=== PATIENT | female | born 1990 | race Caucasian/White ===

== ENCOUNTER 2019-05-12 19:20 | Emergency (ER) | payer MEDICAID ==
[~2019-05-12] VITALS: Ht 154.9 cm; Wt 76.2 kg
[2019-05-12 19:50] VITALS: BP_SYST 113
--- NOTE | 2019-05-12 20:00 | NUR ---
L and Chuck Tirado here to check heart tones
--- NOTE | 2019-05-12 20:00 | NUR ---
Pt AAO x 4, c/o rt foot pain x 1 week. Pt denied taking pain medication, reported 25 weeks however pt denied abdominal pain nor vaginal bleeding. Rt foot with mild swelling and redness to distal dorsum of right foot. Pt c/o sharp pain 8/10 ps. Pt with normal breathing, no other remarkable symptoms noted. Pt waiting for ER MD to evaluate her
--- NOTE | 2019-05-12 22:16 | NUR ---
ER examining patient in triage
[2019-05-12 22:38] VITALS: BP_SYST 110
--- NOTE | 2019-05-12 22:38 | NUR ---
Patient given written and verbal discharge instructions and verbalizes understanding. ER MD discussed with patient the results and treatment provided. Patient in stable condition. ID arm band removed. Rx Keflex 250 mg of given. Patient educated on pain management and to follow up with PMD. Pain Scale 8/10. Opportunity for questions provided and answered.
== END 2019-05-12 22:28 | disposition home or self-care (01) ==
LOC: SED 19:20
DX: L03.115 Cellulitis of right lower limb (principal)
CPT/HCPCS: 99283

== ENCOUNTER 2019-07-30 00:47 | Inpatient (IN) | payer MEDICAID ==
[~2019-07-30] VITALS: Ht 154.9 cm; Wt 81.2 kg
[2019-07-30 01:14] VITALS: BP_SYST 118
[2019-07-30] MEDS ORDERED: CEFAZOLIN 2 GM IVPB PREMIX 50 ML IV ONE ×2 (01:15→09:26)
[2019-07-30] MEDS: LR 1,000 ML IV SCH ×2 (01:30→05:54)
[2019-07-30 01:47] LABS: BILIRUBIN,URINE NEGATIVE (NEGATIVE); BLOOD, URINE 3+ (NEGATIVE); CLARITY/URINE CLOUDY (CLEAR); COLOR,URINE YELLOW (YELLOW); GLUCOSE,URINE NEGATIVE (NEGATIVE); KETONES,URINE NEGATIVE (NEGATIVE); LEUKOCYTE ESTERASE ,URINE 3+ (NEGATIVE); NITRITE, URINE NEGATIVE (NEGATIVE); PROTEIN URINE 2+ (NEGATIVE); UROBILINOGEN,URINE 0.2 (0.2-1.0)
[2019-07-30 01:49] LABS: BASOPHILS # (AUTO) 0.1 K/uL (0.0-0.2); BASOPHILS % (AUTO) 1.1 % (0.0-2.0); EOSINOPHILS # (AUTO) 0.4 K/uL (0.0-0.4); EOSINOPHILS % (AUTO) 4.7 % (0.0-4.0); HEMATOCRIT 39.8 % (36-48); HEMOGLOBIN 13.3 g/dL (12.0-16.0); LYMPHOCYTES # (AUTO) 3.1 K/uL (1.0-5.5); LYMPHOCYTES % (AUTO) 33.8 % (20.5-51.5); MEAN CORPUSCULAR HEMOGLOBIN 30 pg (27-31); MEAN CORPUSCULAR HGB CONC 33 % (32-36); MEAN CORPUSCULAR VOLUME 90 fL (79.0-98.0); MONOCYTES # (AUTO) 0.7 K/uL (0.0-1.0); MONOCYTES % (AUTO) 7.5 % (1.7-9.3); NEUTROPHILS # (AUTO) 4.8 K/uL (1.8-7.7); NEUTROPHILS % (AUTO) 52.9 % (40.0-70.0); PLATELET COUNT (AUTO) 208 K/uL (130-430); RED BLOOD CELL COUNT(AUTO) 4.43 MIL/uL (4.2-6.2); RED CELL DISTRIBUTION WIDTH 13.7 % (9.0-15.0); WHITE BLOOD COUNT (AUTO) 9.2 K/uL (4.8-10.8)
[2019-07-30 01:50] LABS: BACTERIA,URINE MANY /HPF (None Seen); RBC,URINE 50-80 /HPF (0-3); WBC,URINE >100 /HPF (0-3)
[2019-07-30] MEDS ORDERED: fentaNYL CITRATE/PF 100 MCG/2 ML AMP IVP PRN ×2 (08:30)
[2019-07-30] MEDS ORDERED: ONDANSETRON HCL 4 MG/2 ML VIAL IVP PRN (08:30)
[2019-07-30] MEDS ORDERED: NALOXONE HCL 0.4 MG/ML AMP (NARCAN) IVP PRN ×2 (08:30)
[2019-07-30] MEDS ORDERED: NALBUPHINE HCL 10 MG/ML AMP IVP PRN (08:30)
[2019-07-30] MEDS ORDERED: MORPHINE SULFATE 10MG/10ML PF AMP SP SCH (08:30)
[2019-07-30] MEDS ORDERED: KETOROLAC TROMETHAMINE 60 MG/2 ML VIAL IM PRN (08:30)
[2019-07-30] MEDS ORDERED: DIPHENHYDRAMINE INJ 50 MG/ML VIAL IVP PRN (08:30)
[2019-07-30] MEDS ORDERED: NS IRRIG SOLN 1000 ML IR ONE (09:26)
[2019-07-30] MEDS ORDERED: MIDAZOLAM HCL 5 MG/5 ML VIAL IVP ONE (09:26)
[2019-07-30] MEDS ORDERED: BUPIVACAINE /DEX PF 0.75% SPINAL 2 ML AMP INJ ONE (09:26)
[2019-07-30] MEDS ORDERED: LR 1,000 ML IV.SOLN IV ONE (09:26)
[2019-07-30] MEDS ORDERED: ePHEDrine sulfate 50 MG/ML VIAL IVP ONE (09:26)
[2019-07-30] MEDS ORDERED: MORPHINE SULFATE 10MG/10ML PF AMP EP ONE (09:26)
[2019-07-30 10:23] VITALS: BP_SYST 106
[2019-07-30] MEDS ORDERED: DIPH-TET-PERTUS Vaccine 0.5 ML VIAL (ADACEL) I.M. PRN (12:30)
[2019-07-30] MEDS ORDERED: BISACODYL 10 MG/SUPPOSITORY RC PRN (12:30)
[2019-07-30] MEDS ORDERED: LR 1,000 ML IV SCH (12:30)
[2019-07-30] MEDS ORDERED: SENNOSIDES/DOCUSATE SODIUM 1 TAB TABLET(SENOKOT-S) PO PRN (12:30)
[2019-07-30] MEDS ORDERED: MEASLES,MUMPS&RUBELLA VACC/PF 12500 UNIT/0.5 ML VIAL SUBQ PRN (12:30)
[2019-07-30] MEDS ORDERED: RHO(D) IMMUNE GLOBULIN/MALTOSE 1500 UNITS/1.3 ML (WINHRO) IM PRN (12:30)
[2019-07-30] MEDS ORDERED: OXYCODONE/ACETAMINOPHEN 5-325 TABLET PO PRN ×2 (12:30)
[2019-07-30] MEDS ORDERED: DOCUSATE SODIUM 100 MG CAPSULE PO PRN (12:30)
[2019-07-30] MEDS ORDERED: HYDROcodone/ACETAMIN 5-325 MG TAB (NORCO/ VICODIN) PO PRN (12:30)
[2019-07-30] MEDS ORDERED: SIMETHICONE 80 MG TAB.CHEW PO PRN (12:30)
[2019-07-30] MEDS ORDERED: LANOLIN 7 GM OINT. TP PRN (12:30)
[2019-07-30] MEDS ORDERED: ANUSOL 1 EA SUPP.RECT (PREPARATION H) RC PRN (12:30)
[2019-07-30] MEDS ORDERED: OXYTOCIN/0.9 % SODIUM CHLORIDE 1,000 ML IV ONE (12:30)
[2019-07-30] MEDS: KETOROLAC TROMETHAMINE 30 MG VIAL IVP SCH ×2 (18:16→23:54)
[2019-07-30] MEDS: CEFAZOLIN 1 GM IVPB PREMIX 50 ML IV SCH ×2 (18:16→23:54)
[2019-07-30] MEDS ORDERED: TEMAZEPAM 15 MG CAPSULE PO PRN (21:00)
[2019-07-31] MEDS ORDERED: IBUPROFEN 600 MG TABLET PO SCH
[2019-07-31] MEDS: KETOROLAC TROMETHAMINE 30 MG VIAL IVP SCH ×2 (06:02→12:33)
[2019-07-31] MEDS: CEFAZOLIN 1 GM IVPB PREMIX 50 ML IV SCH (06:03)
[2019-07-31 07:22] LABS: BASOPHILS % (AUTO) 0.6 % (0.0-2.0); EOSINOPHILS # (AUTO) 0.1 K/uL (0.0-0.4); EOSINOPHILS % (AUTO) 1.7 % (0.0-4.0); HEMATOCRIT 34.8 % (36-48); HEMOGLOBIN 11.5 g/dL (12.0-16.0); LYMPHOCYTES # (AUTO) 1.5 K/uL (1.0-5.5); LYMPHOCYTES % (AUTO) 19.1 % (20.5-51.5); MEAN CORPUSCULAR HEMOGLOBIN 30 pg (27-31); MEAN CORPUSCULAR HGB CONC 33 % (32-36); MEAN CORPUSCULAR VOLUME 92 fL (79.0-98.0); MONOCYTES # (AUTO) 0.6 K/uL (0.0-1.0); MONOCYTES % (AUTO) 8.2 % (1.7-9.3); NEUTROPHILS # (AUTO) 5.4 K/uL (1.8-7.7); NEUTROPHILS % (AUTO) 70.4 % (40.0-70.0); PLATELET COUNT (AUTO) 172 K/uL (130-430); RED CELL DISTRIBUTION WIDTH 13.4 % (9.0-15.0); WHITE BLOOD COUNT (AUTO) 7.7 K/uL (4.8-10.8)
[2019-07-31] MEDS: IBUPROFEN 600 MG TABLET PO SCH ×2 (18:09→23:55)
[2019-08-01] MEDS: IBUPROFEN 600 MG TABLET PO SCH ×2 (06:00→12:09)
== END 2019-08-01 13:48 | disposition home or self-care (01) | DRG 540 ==
LOC: SPU 00:47
PROVIDERS: ADMIT Obstetrics & Gynecology; ATTEND Obstetrics & Gynecology
PROC: 10D00Z1 Extraction of Products of Conception, Low, Open Approach (ICD-10-PCS; principal; 2019-07-30 10:00)
DX: O32.8XX0 Maternal care for other malpresentation of fetus, not applicable or unspecified (principal); O42.92 Full-term premature rupture of membranes, unspecified as to length of time between rupture and onset of labor; O77.0 Labor and delivery complicated by meconium in amniotic fluid; O69.81X0 Labor and delivery complicated by cord around neck, without compression, not applicable or unspecified; Z37.0 Single live birth; Z3A.38 38 weeks gestation of pregnancy
CPT/HCPCS: 36415; 81000-TC; 85025; 86592; 86886; 86900; 86901; 94760; J0690; J1885; J2250; J2274; J2405; J2590; J3490; J7120

== ENCOUNTER 2019-08-04 15:36 | Inpatient (IN) | payer MEDICAID ==
[~2019-08-04] VITALS: Ht 154.9 cm; Wt 79.4 kg
[2019-08-04 16:30] VITALS: BP_SYST 147
--- NOTE | 2019-08-04 16:40 | NUR ---
Patient triaged and placed in waiting room. VSS and patient appears in no acute distress at this time. Accompanied by friend, awaiting available bed, and MD notified of need for MSE.
[2019-08-04 17:33] LABS: BASOPHILS # (AUTO) 0.1 K/uL (0.0-0.2); BASOPHILS % (AUTO) 0.6 % (0.0-2.0); EOSINOPHILS % (AUTO) 0.5 % (0.0-4.0); HEMATOCRIT 36.1 % (36-48); HEMOGLOBIN 11.7 g/dL (12.0-16.0); LYMPHOCYTES # (AUTO) 0.9 K/uL (1.0-5.5); LYMPHOCYTES % (AUTO) 9.3 % (20.5-51.5); MEAN CORPUSCULAR HEMOGLOBIN 30 pg (27-31); MEAN CORPUSCULAR HGB CONC 33 % (32-36); MEAN CORPUSCULAR VOLUME 92 fL (79.0-98.0); MONOCYTES # (AUTO) 0.4 K/uL (0.0-1.0); MONOCYTES % (AUTO) 4.3 % (1.7-9.3); NEUTROPHILS # (AUTO) 7.9 K/uL (1.8-7.7); NEUTROPHILS % (AUTO) 85.3 % (40.0-70.0); PLATELET COUNT (AUTO) 261 K/uL (130-430); RED BLOOD CELL COUNT(AUTO) 3.93 MIL/uL (4.2-6.2); RED CELL DISTRIBUTION WIDTH 13.7 % (9.0-15.0); WHITE BLOOD COUNT (AUTO) 9.2 K/uL (4.8-10.8)
[2019-08-04 18:07] LABS: CALCIUM 7.9 mg/dL (8.4-11.0); CREATININE 2.24 mg/dL (0.55-1.30); POTASSIUM 4.2 mmol/L (3.5-5.1)
[2019-08-04 18:13] LABS: ALBUMIN 2.4 g/dL (3.4-4.8); TOTAL BILIRUBIN 0.3 mg/dL (0.0-1.0)
[2019-08-04 18:26] LABS: BILIRUBIN,URINE NEGATIVE (NEGATIVE); BLOOD, URINE 2+ (NEGATIVE); CLARITY/URINE CLEAR (CLEAR); COLOR,URINE YELLOW (YELLOW); GLUCOSE,URINE NEGATIVE (NEGATIVE); KETONES,URINE NEGATIVE (NEGATIVE); LEUKOCYTE ESTERASE ,URINE TRACE (NEGATIVE); NITRITE, URINE NEGATIVE (NEGATIVE); PROTEIN URINE NEGATIVE (NEGATIVE); UROBILINOGEN,URINE 0.2 (0.2-1.0)
[2019-08-04 18:35] LABS: BACTERIA,URINE FEW /HPF (None Seen)
--- NOTE | 2019-08-04 20:43 | NUR ---
Pt ambulatory to bed 6 for evaluation
--- NOTE | 2019-08-04 20:55 | NUR ---
Pt presents to ER with friend with c/o nausea, vomiting, body aches, chest tightness and head pain. Pt A&Ox4. Pt states head pain is a migraine and pain is 10/10. Pt states head pain began at 10 am and then around noon, chest tightness began and pain is intermittent. Pt states pain is 7/10. Pt states nausea then started at 1 pm and had 3 episodes of emesis. Pt denies fever, cough, SOB, and chills. Breath sounds bilaterally equal with no use of accessory muscles. Will continue to monitor.
--- NOTE | 2019-08-04 21:03 | NUR ---
ER Dr. Tariq at bedside examining patient.
--- NOTE | 2019-08-04 21:12 | NUR ---
MD Tariq speaking to pt OB doctor, MD Eubanks. Will continue to monitor.
[2019-08-04] MEDS ORDERED: ACETAMINOPHEN 500 MG TABLET PO ONE (21:15)
--- NOTE | 2019-08-04 22:12 | NUR ---
# 20 gauge angiocath placed to R AC. Use of asceptic technique. Opsite placed over site. Blood return noted. Flushed with 10 cc of normal saline. No evidence of infiltration noted. Patient tolerated well.
--- NOTE | 2019-08-04 22:29 | NUR ---
Pt off floor to radiology via wheelchair in stable condition.
--- NOTE | 2019-08-04 22:59 | NUR ---
Pt returned from radiology via wheelchair.
--- NOTE | 2019-08-05 00:01 | NUR ---
Patient will be admitted to care of MD Patel. Admitted to Telemetry unit. Awaiting bed placement. Belongings list completed. Complete and up to date summary report printed. SBAR report to be given at bedside with opportunity for questions.
[2019-08-05] MEDS ORDERED: MORPHINE 2 MG/ML INJ. SYRINGE IVP ONE (00:30)
[2019-08-05] MEDS ORDERED: ONDANSETRON HCL 4 MG/2 ML VIAL IVP ONE (00:45)
[2019-08-05] MEDS ORDERED: MORPHINE 2 MG/ML INJ. SYRINGE ONE (00:45)
[2019-08-05] MEDS ORDERED: ONDANSETRON HCL 4 MG/2 ML VIAL ONE (00:53)
--- NOTE | 2019-08-05 01:00 | NUR ---
Medication reconciliation completed with information provided by patient. Any prior medication reconciliation on file was reviewed and corrected.
--- NOTE | 2019-08-05 01:01 | NUR ---
Transfer to Telemetry room 116B via ACLS protocol. Licensed nurse present. IV present no signs or symptoms of infiltration.
[2019-08-05 01:14] VITALS: BP_SYST 159
--- NOTE | 2019-08-05 01:15 | NUR ---
ADMISSION NOTE Received patient from ER via [facility] under the care of Dr. Patel. Patient admitted with diagnosis of Bradycardia, CHF, Renal Insufficiency. Patient is awake, alert, oriented X 4. Patient oriented to hospital room, call light, toileting, pain management and safety-teach back done. Patient informed that her nurse will be Karmen DIANE and that her room number is 116B. Call light within reach. Will continue to monitor patient condition.
--- NOTE | 2019-08-05 01:15 | NUR ---
RENAL CONSULT REASON FOR CONSULTATION:RENAL SUFFICIENCY WAS CONSULT CALLED?Y PERSON WHO WAS NOTIFIED:JESSICA CONSULTING PHYSICIAN:ЕЛЕНА BORDEN SENIOR LITIGATION PARALEGAL SPECIALTY:NEPHROLOGY SENIOR LITIGATION [place]GAL PHONE NUMBER:[phone] REQUESTING PHYSICIAN:SEBASTIAN CORADO
--- NOTE | 2019-08-05 01:22 | NUR ---
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
--- NOTE | 2019-08-05 02:00 | NUR ---
MRSA SWAB MRSA SWAB COLLECTED BY THIS RN AND SENT TO THE LAB.
[2019-08-05] MEDS: D5/0.45 NS 1,000 ML IV SCH ×3 (02:03→21:06)
--- NOTE | 2019-08-05 03:27 | NUR ---
PAGED PAGED DOCTOR PALOMO IS DIRECTOR OF OUTREACH FOR [facility]
--- NOTE | 2019-08-05 03:32 | NUR ---
DR. HUGHES SPOKE WITH DR. HUGHES OVER THE PHONE REGARDING PATIENT'S HEART RATE IN THE LOW 40's AND PEAKED T-WAVE, NO NEW ORDERS GIVEN AT THIS TIME, MD VERBALIZED HE WILL SEE THE PATIENT IN THE MORNING AND CONTINUE TO MONITOR.
--- NOTE | 2019-08-05 03:52 | NUR ---
Dr. Patel Spoke with Dr. Patel over the phone regarding patient's heart rate in the 40's and peaked T-waves. made aware that patient received atropine 0.5mg IVP once at 0016 in ED. MD gave new orders, verified and confirmed by read-back, RN to input.
[2019-08-05] MEDS ORDERED: ATROPINE SULFATE 1 MG/10 ML SYRINGE IVP ONE ×2 (04:15)
--- NOTE | 2019-08-05 04:44 | NUR ---
RN Rounds Patient's heart rate in the 40's. New one time dose of atropine 0.5mg IVP ordered, educated patient on medication uses and potential side effects, patient able to verbalize understanding, administered medication per MD order, patient tolerated well. Safety and fall precautions in place, call light with patient, will continue to monitor.
--- NOTE | 2019-08-05 06:55 | NUR ---
Closing Note Patient resting in bed, family at bedside, patient is A/Ox4, no signs of acute distress, patient complains of flank pain discomfort, IV to right AC infusing well, even and unlabored breathing on room air, patient is on strict I & Os. Safety and fall precautions in place, patient refused bed alarm, despite education, patient verbalized she will use her call light for assistance out of bed, bed locked and in lowest position, two bed rails up, call light with patient, will endorse care to dayshift RN.
[2019-08-05 07:11] LABS: ALBUMIN 2.7 g/dL (3.4-4.8); CALCIUM 8.2 mg/dL (8.4-11.0); CREATININE 2.32 mg/dL (0.55-1.30); POTASSIUM 4.2 mmol/L (3.5-5.1); TOTAL BILIRUBIN 0.5 mg/dL (0.0-1.0)
--- NOTE | 2019-08-05 08:00 | NUR ---
PT. RESTING QUIETLY, VSS, DENIES PAIN. WILL HAVE MULTIPLE TESTS DONE TODAY. EDUCATED ON TREATMENT PLAN AND ALL QUESTIONS ANSWERED. SB ON TELE HR IN LOW 50 WITH PT. NON SYMPTOMATIC. WILL CONT. TO MONITOR.
[2019-08-05 08:07] VITALS: BP_SYST 137
[2019-08-05] MEDS ORDERED: LABETALOL HCL 100 MG TABLET PO SCH (09:00)
--- NOTE | 2019-08-05 09:05 | NUR ---
Page to underwriting director x2 in regard to pt. hr is in low 40's. Pt. is asymptomatic will monitor.
[2019-08-05 09:06] LABS: BASOPHILS # (AUTO) 0.1 K/uL (0.0-0.2); BASOPHILS % (AUTO) 0.7 % (0.0-2.0); EOSINOPHILS # (AUTO) 0.1 K/uL (0.0-0.4); EOSINOPHILS % (AUTO) 1.3 % (0.0-4.0); HEMATOCRIT 39.1 % (36-48); HEMOGLOBIN 12.6 g/dL (12.0-16.0); LYMPHOCYTES # (AUTO) 1.9 K/uL (1.0-5.5); LYMPHOCYTES % (AUTO) 19.8 % (20.5-51.5); MEAN CORPUSCULAR HEMOGLOBIN 30 pg (27-31); MEAN CORPUSCULAR HGB CONC 32 % (32-36); MEAN CORPUSCULAR VOLUME 93 fL (79.0-98.0); MONOCYTES # (AUTO) 0.8 K/uL (0.0-1.0); MONOCYTES % (AUTO) 8.1 % (1.7-9.3); NEUTROPHILS # (AUTO) 6.6 K/uL (1.8-7.7); NEUTROPHILS % (AUTO) 70.1 % (40.0-70.0); PLATELET COUNT (AUTO) 300 K/uL (130-430); RED BLOOD CELL COUNT(AUTO) 4.22 MIL/uL (4.2-6.2); RED CELL DISTRIBUTION WIDTH 13.8 % (9.0-15.0); WHITE BLOOD COUNT (AUTO) 9.4 K/uL (4.8-10.8)
[2019-08-05] MEDS: hydrALAZINE HCL 10 MG TABLET PO SCH ×2 (09:23→21:04)
[2019-08-05] MEDS: cefTRIAXone 1 GM IVPB PREMIX 50 ML IV SCH (09:24)
[2019-08-05] MEDS: PANTOPRAZOLE SODIUM 40 MG TAB PO SCH (09:25)
--- NOTE | 2019-08-05 12:12 | NUR ---
DC PLANNING Chart reviewed, spoke to patient at , she lives at [address] [facility] without DME. ADLs- independent, DCP- home.
--- NOTE | 2019-08-05 12:56 | NUR ---
Spoke with Dr. Live ( cardiology) in regard to pt. having bradycardia. He was given the latest vitals and was told that pt. is asymptomatic with bradycardia. He gave no new orders. I will continue to monitor.
[2019-08-05 14:23] VITALS: BP_SYST 134
[2019-08-05 16:17] VITALS: BP_SYST 131
--- NOTE | 2019-08-05 17:23 | NUR ---
PT. VISITING WITH HER FAMILY. DENIES PAIN, SB ON MONITOR. AAOX4, CALL LIGHT IN REACH. WILL CONT. MONITOR.
--- NOTE | 2019-08-05 19:37 | NUR ---
Opening Note Received report from charles RN, patient resting in bed, family at bedside, patient is A/Ox4, no signs of acute distress, patient complains of headache, patient verbalized it is tolerable, IV to right AC infusing well, D5 1/2 NS @75, even and unlabored breathing on room air. Safety and fall precautions in place, patient refused bed alarm despite education, patient verbalized she will use her call light for assistance out of bed, bed locked and in lowest position, two bed rails up, call light with patient, will continue to monitor.
[2019-08-05 20:00] VITALS: BP_SYST 128
[2019-08-05] MEDS: ACETAMINOPHEN 325 MG TABLET PO PRN (21:05)
--- NOTE | 2019-08-05 21:05 | NUR ---
Pain Patient complains of 3/10 pain to her head. Tylenol 650mg PO indicated for mild pain. Educated patient on medication uses and potential side effects, patient able to verbalize understanding, administered medication per MD order, patient tolerated well. Safety and fall precautions in place, call light with patient, will continue to monitor.
--- NOTE | 2019-08-05 22:36 | NUR ---
RN Rounds Patient resting in bed, family at bedside, patient is awake, no signs of acute distress, IV to right AC infusing well, tolerating room air, patient's heart rate in the 40's, MD aware, patient is asymptomatic. Safety and fall precautions in place, bed locked and in lowest position, two bed rails up, call light with patient, will continue to monitor.
[2019-08-06] VITALS: BP_SYST 139
--- NOTE | 2019-08-06 00:14 | NUR ---
RN Rounds Patient resting in bed, family at bedside, eyes closed, no signs of acute distress, IV to right AC infusing well, tolerating room air midnight vitals signs WNL, patient's heart rate in 40's, patient is asymptomatic. Safety and fall precautions in place, call light with patient, will continue to monitor.
[2019-08-06] MEDS: ACETAMINOPHEN 325 MG TABLET PO PRN ×2 (03:57→17:38)
--- NOTE | 2019-08-06 04:25 | NUR ---
Collected Urine Samples Patient has multiple orders for urine samples. Collect and will walk over to lab at this time.
[2019-08-06 04:59] LABS: BARBITURATE, URINE NEGATIVE (NEG <=200); METHAMPHETAMINES SCREEN,URINE NEGATIVE (NEG <=500); OPIATE, URINE POSITIVE (NEG <=100); URINE AMPHETAMINE NEGATIVE (NEG <=500)
[2019-08-06 05:00] LABS: BENZODIAZEPINE, URINE NEGATIVE (NEG <=150); CANNABINOID, URINE NEGATIVE (NEG <=50); COCAINE, URINE NEGATIVE (NEG <=150); PHENCYCLIDINE SCREEN,URINE NEGATIVE (NEG <=25); UR TRICYCLIC ANTIDEPRESSANTS NEGATIVE (NEG <=300); URINE METHADONE NEGATIVE (NEG <=200); URINE OXYCODONE SCREEN NEGATIVE (NEG <=100); URINE PROPOXYPHENE SCREEN NEGATIVE (NEG <=300)
--- NOTE | 2019-08-06 06:39 | NUR ---
CLOSING NOTE Patient resting in bed, eyes closed, family at bedside, no signs of acute distress, IV to right AC infusing well, even and unlabored breathing on room air. Safety and fall precautions in place, patient refused bed alarm throughout shift despite education, patient has a steady gait and able to ambulate with IV pole, bed locked and in lowest position, two bed rails up, call light with patient, will endorse care to dayshift RN.
[2019-08-06 07:12] LABS: BASOPHILS % (AUTO) 0.5 % (0.0-2.0); EOSINOPHILS # (AUTO) 0.2 K/uL (0.0-0.4); EOSINOPHILS % (AUTO) 2.2 % (0.0-4.0); HEMATOCRIT 33.9 % (36-48); HEMOGLOBIN 11.2 g/dL (12.0-16.0); LYMPHOCYTES # (AUTO) 1.7 K/uL (1.0-5.5); LYMPHOCYTES % (AUTO) 20.5 % (20.5-51.5); MEAN CORPUSCULAR HEMOGLOBIN 30 pg (27-31); MEAN CORPUSCULAR HGB CONC 33 % (32-36); MEAN CORPUSCULAR VOLUME 91 fL (79.0-98.0); MONOCYTES # (AUTO) 0.8 K/uL (0.0-1.0); MONOCYTES % (AUTO) 9.6 % (1.7-9.3); NEUTROPHILS # (AUTO) 5.7 K/uL (1.8-7.7); NEUTROPHILS % (AUTO) 67.2 % (40.0-70.0); PLATELET COUNT (AUTO) 261 K/uL (130-430); RED BLOOD CELL COUNT(AUTO) 3.71 MIL/uL (4.2-6.2); RED CELL DISTRIBUTION WIDTH 13.4 % (9.0-15.0); WHITE BLOOD COUNT (AUTO) 8.5 K/uL (4.8-10.8)
[2019-08-06 07:30] LABS: ALBUMIN 2.4 g/dL (3.4-4.8); CALCIUM 7.7 mg/dL (8.4-11.0); CREATININE 2.37 mg/dL (0.55-1.30); POTASSIUM 4.2 mmol/L (3.5-5.1); TOTAL BILIRUBIN 0.4 mg/dL (0.0-1.0)
--- NOTE | 2019-08-06 07:35 | NUR ---
OPENING NOTE Patient resting in the bed. No acute distress. Skin warm and dry to touch. IV intact to RAC, no redness, no swelling, no drainage. On D5 1/2NS at 75ml/hr, infusing well. Discussed the safety issue, use call light when needs help, and plan of care, verbally understanding. Safety measure maintained. Bed locked in low position, side rails up. Refused bed alarm, risk and benefit explained, verbally understanding. Call light within reached. Will continue to monitor.
[2019-08-06 07:50] VITALS: BP_SYST 133
--- NOTE | 2019-08-06 08:05 | NUR ---
SEEN AND EXAMINED BY MARILYN COLLADO.
--- NOTE | 2019-08-06 09:28 | NUR ---
SEEN AND EXAMINED BY ЕЛЕНА LAMAS WITH ORDER RECEIVED.
[2019-08-06] MEDS: cefTRIAXone 1 GM IVPB PREMIX 50 ML IV SCH (09:57)
[2019-08-06] MEDS: PANTOPRAZOLE SODIUM 40 MG TAB PO SCH (09:57)
[2019-08-06] MEDS: hydrALAZINE HCL 10 MG TABLET PO SCH ×2 (10:00→22:18)
[2019-08-06] MEDS: D5/0.45 NS 1,000 ML IV SCH (10:02)
--- NOTE | 2019-08-06 11:40 | NUR ---
LINEN CHANGED Patient performed personal hygiene self, supply provided. Linen changed. Safety measure maintained. Call light within reached. Continue to monitor.
[2019-08-06 12:00] VITALS: BP_SYST 125
--- NOTE | 2019-08-06 13:40 | NUR ---
OFF UNIT TO CT ABDOMEN/PELVIS VIA WHEELCHAIR IN STABLE CONDITION.
--- NOTE | 2019-08-06 13:57 | NUR ---
BACK TO UNIT FROM RADIOLOGY DEPT VIA WHEELCHAIR IN STABLE CONDITION.
[2019-08-06 16:00] VITALS: BP_SYST 141
--- NOTE | 2019-08-06 16:02 | NUR ---
ROUND Patient resting in the bed and watching TV. No acute distress. IV intact, IVF infusing well. Safety measure maintained. Call light within reached. Bed locked in low position, side rails up. Continue to monitor.
--- NOTE | 2019-08-06 17:39 | NUR ---
TYLENOL GIVEN Patient c/o headache 08/11, Tylenol 650mg PO given as ordered. No acute distress. Safety measure maintained. Call light within reached. Bed locked in low position, side rails up. Continue to monitor.
--- NOTE | 2019-08-06 18:30 | NUR ---
CLOSING NOTE Patient resting in the bed. No acute distress. Pain med given as needed. Skin warm and dry to touch. IV intact to RAC, no redness, no swelling, no drainage. On D5 1/2NS at 75ml/hr, infusing well. All needs met. Family at bedside. Safety measure maintained. Bed locked in low position, side rails up. Refused bed alarm, risk and benefit explained, verbally understanding. Call light within reached. Will endorse to night nurse.
[2019-08-06 20:00] VITALS: BP_SYST 146
--- NOTE | 2019-08-06 20:00 | NUR ---
received report @ start of shift, a/o/x/4, respirations even and unlabored , room sir, SB on tele monitor heart rate in low 40's, states that's her normal hr. family @ bedside denies pain, tolerated evening meal 100%, po fluids tolerated well, D51/2NS infusing @ 75 ml/hr in RAC, eager to go home to new baby, sr's up x's 2, call light within reach, bed in low position, will continue to monitor.
--- NOTE | 2019-08-07 | NUR ---
resting quietly in bed with eyes closed, easily aroused, denies pain, IVF infusing in RAC without difficulty, will continue to monitor,
[2019-08-07] MEDS: D5/0.45 NS 1,000 ML IV SCH (01:23)
[2019-08-07] MEDS: ACETAMINOPHEN 325 MG TABLET PO PRN ×2 (01:24→12:19)
[2019-08-07 02:26] VITALS: BP_SYST 150
[2019-08-07 04:00] VITALS: BP_SYST 140
--- NOTE | 2019-08-07 04:00 | NUR ---
c/o headache medicated with Tylenol 650 mg po, able to ambulate to restoom, oiding clear yellow urine, abdominal incision with steri strips C/D/I, will continue to monitor.
--- NOTE | 2019-08-07 07:25 | NUR ---
OPENING NOTE Patient resting in the bed. No acute distress. Skin warm and dry to touch. IV intact to RAC, no redness, no swelling, no drainage. On D5 1/2NS at 75ml/hr, infusing well. Abdomen incision intact with sterile strips, no drainage, no bleeding noted. Discussed the safety issue, use call light when needs help, and plan of care, verbally understanding. Safety measure maintained. Bed locked in low position, side rails up. Refused bed alarm, risk and benefit explained, verbally understanding. Call light within reached. Will continue to monitor.
[2019-08-07 07:50] VITALS: BP_SYST 148
--- NOTE | 2019-08-07 09:05 | NUR ---
SEEN AND EXAMINED BY MARILYN COLLADO.
[2019-08-07] MEDS: PANTOPRAZOLE SODIUM 40 MG TAB PO SCH (09:26)
[2019-08-07] MEDS: cefTRIAXone 1 GM IVPB PREMIX 50 ML IV SCH (09:26)
[2019-08-07] MEDS: hydrALAZINE HCL 10 MG TABLET PO SCH ×2 (09:29→20:59)
--- NOTE | 2019-08-07 10:38 | NUR ---
ROUND Patient resting in the bed. No acute distress. IV intact, IVF infusing well. Safety measure maintained. Call light within reached. Bed in low position, side rails up. Continue to monitor.
[2019-08-07 12:16] VITALS: BP_SYST 158
--- NOTE | 2019-08-07 14:28 | NUR ---
ROUND Patient resting in the bed and watching TV. No acute distress. IV intact, IVF infusing well. Safety measure maintained. Call light within reached. Bed in low position, side rails up. Continue to monitor.
[2019-08-07 16:00] VITALS: BP_SYST 127
--- NOTE | 2019-08-07 17:55 | NUR ---
SEEN AND EXAMINED BY ЕЛЕНА LAMAS WITH ORDER RECEIVED.
--- NOTE | 2019-08-07 18:32 | NUR ---
CLOSING NOTE Patient resting in the bed. No acute distress. Pain med given as needed. Skin warm and dry to touch. IV intact to RAC, no redness, no swelling, no drainage. IVF infusing well. All needs met. Family at bedside. Safety measure maintained. Bed locked in low position, side rails up. Refused bed alarm, risk and benefit explained, verbally understanding. Call light within reached. Will endorse to night nurse.
[2019-08-07 20:00] VITALS: BP_SYST 148
--- NOTE | 2019-08-07 20:00 | NUR ---
report received @ stsrt of shift, a/o/x/4, respirations even and unlabored, room air, pale skin , abdominal incision with steri strips and intact, denies pain, ambulates with steady gait, voiding clear yellow urine, family @ bed side, will continue to monitor, shows no signs of distress.
[2019-08-08 04:00] VITALS: BP_SYST 136
--- NOTE | 2019-08-08 06:00 | NUR ---
continues to rest quietly in bed with eyes closed, easily aroused, voiding clear yellow urine, will continue to monitor.
[2019-08-08 06:03] LABS: ALBUMIN 2.4 g/dL (3.4-4.8); CALCIUM 7.7 mg/dL (8.4-11.0); CREATININE 2.2 mg/dL (0.55-1.30); POTASSIUM 4.6 mmol/L (3.5-5.1); TOTAL BILIRUBIN 0.3 mg/dL (0.0-1.0)
[2019-08-08 06:56] LABS: BASOPHILS # (AUTO) 0.1 K/uL (0.0-0.2); BASOPHILS % (AUTO) 1.1 % (0.0-2.0); EOSINOPHILS # (AUTO) 0.2 K/uL (0.0-0.4); EOSINOPHILS % (AUTO) 3.1 % (0.0-4.0); HEMATOCRIT 33.4 % (36-48); LYMPHOCYTES # (AUTO) 1.9 K/uL (1.0-5.5); MEAN CORPUSCULAR HEMOGLOBIN 30 pg (27-31); MEAN CORPUSCULAR HGB CONC 33 % (32-36); MEAN CORPUSCULAR VOLUME 91 fL (79.0-98.0); MONOCYTES # (AUTO) 0.7 K/uL (0.0-1.0); MONOCYTES % (AUTO) 9.2 % (1.7-9.3); NEUTROPHILS # (AUTO) 4.6 K/uL (1.8-7.7); NEUTROPHILS % (AUTO) 61.6 % (40.0-70.0); PLATELET COUNT (AUTO) 314 K/uL (130-430); RED BLOOD CELL COUNT(AUTO) 3.67 MIL/uL (4.2-6.2); RED CELL DISTRIBUTION WIDTH 13.7 % (9.0-15.0); WHITE BLOOD COUNT (AUTO) 7.5 K/uL (4.8-10.8)
[2019-08-08] MEDS: D5/0.45 NS 1,000 ML IV SCH (07:55)
--- NOTE | 2019-08-08 07:55 | NUR ---
INITIAL NOTE RECEIVED PT IN BED, NO S/S OF DISTRESS OR SOB NOTED, PT HAS NO C/O PAIN AT THIS TIME, PT IN STABLE CONDITION. PT AAOX4, VERBAL. IV CATHETER PATENT, NO SIGNS OF INFECTION OR INFILTRATION NOTED, SALINE LOCK, PT REFUSED TO HAVE IV FLUIDS RUNNING, MD MADE AWARE PER REPORT GIVEN. BED AT LOWEST POSITION, CALL LIGHT WITHIN REACH, WILL CONTINUE TO MONITOR PT FOR ANY CHANGES. FALL AND SAFETY PRECAUTIONS IN PLACE.
[2019-08-08 08:30] VITALS: BP_SYST 144
[2019-08-08] MEDS: cefTRIAXone 1 GM IVPB PREMIX 50 ML IV SCH (09:14)
[2019-08-08] MEDS: PANTOPRAZOLE SODIUM 40 MG TAB PO SCH (09:14)
[2019-08-08] MEDS: hydrALAZINE HCL 10 MG TABLET PO SCH (09:14)
--- NOTE | 2019-08-08 10:30 | NUR ---
ROUNDS DR SONG SALAZAR, AWARE OF PATIENT'S CONDITION, PER MD SHE CAN BE D/C HOME.
--- NOTE | 2019-08-08 10:42 | NUR ---
ROUNDS PT IN BED, NO S/S OF DISTRESS OR SOB NOTED, PT HAS NO C/O PAIN AT THIS TIME, PT IN STABLE CONDITION, PT RESTING COMFORTABLY AND TALKING TO VISITORS AT BEDSIDE, WILL CONTINUE TO MONITOR PT FOR ANY CHANGES.
[2019-08-08 12:47] VITALS: BP_SYST 125
[2019-08-08 14:08] VITALS: BP_SYST 122
[2019-08-08 16:00] VITALS: BP_SYST 91
== END 2019-08-08 14:45 | disposition home or self-care (01) | DRG 561 ==
LOC: SED 15:36 → STU 23:55
PROVIDERS: ADMIT Specialist; ATTEND Specialist
DX: O90.89 Other complications of the puerperium, not elsewhere classified (principal); O90.4 Postpartum acute kidney failure; N17.9 Acute kidney failure, unspecified; I50.9 Heart failure, unspecified; N13.6 Pyonephrosis; O86.21 Infection of kidney following delivery; E88.09 Other disorders of plasma-protein metabolism, not elsewhere classified; J45.909 Unspecified asthma, uncomplicated; T39.391A Poisoning by other nonsteroidal anti-inflammatory drugs [NSAID], accidental (unintentional), initial encounter; Y92.89 Other specified places as the place of occurrence of the external cause
CPT/HCPCS: 36415; 70450-TC; 71045; 76700-TC; 78579; 78580-TC; 80053; 80307; 81000-TC; 82550-TC; 82570-TC; 83880; 84484; 85025; 85379; 87081; 87086; 93005; 93306; 93970; 96374; 96375; 99285; A9539; A9540; G0378; J0461; J0696; J2270; J2405; J7050

== ENCOUNTER 2023-11-13 20:45 | Emergency (ER) | payer MEDICAID ==
[~2023-11-13] VITALS: Ht 157.5 cm; Wt 72.6 kg
[2023-11-13 20:53] VITALS: BP_SYST 115; PULSE 17; RESP 17; TEMP 98.9; O2SAT 98
[2023-11-13 21:14] LABS: BILIRUBIN,URINE NEGATIVE (NEGATIVE); CLARITY/URINE CLOUDY (CLEAR); COLOR,URINE YELLOW (YELLOW); GLUCOSE,URINE NEGATIVE (NEGATIVE); KETONES,URINE NEGATIVE (NEGATIVE); LEUKOCYTE ESTERASE ,URINE 3+ (NEGATIVE); NITRITE, URINE POSITIVE (NEGATIVE); PROTEIN URINE TRACE (NEGATIVE)
[2023-11-13 21:16] LABS: BLOOD, URINE TRACE (NEGATIVE)
[2023-11-13 21:30] LABS: HCG,QUAL RESULT NEGATIVE (NEGATIVE)
[2023-11-13 21:38] LABS: BACTERIA,URINE MANY /HPF (None Seen); WBC,URINE 50-80 /HPF (0-3)
[2023-11-13] MEDS ORDERED: CEPH-548 PO (22:51)
[2023-11-13] MEDS ORDERED: IBUP-1969 PO (22:51)
[2023-11-13] MEDS: KETOROLAC TROMETHAMINE 60 MG/2 ML VIAL IM ONE (22:55)
[2023-11-13 23:00] VITALS: BP_SYST 115; PULSE 17; RESP 17; TEMP 98.9; O2SAT 98
== END 2023-11-13 23:00 | disposition home or self-care (01) ==
LOC: SED 20:45
DX: N39.0 Urinary tract infection, site not specified (principal); R51.9 Headache, unspecified; R50.9 Fever, unspecified; M54.50 Low back pain, unspecified
CPT/HCPCS: 99283; 81001; 84703; 87086; 96372; J1885; 81000; 81015